=== PATIENT | male | born 1970 | race Caucasian/White ===

== ENCOUNTER → 2023-07-29 06:41 | Day surgery (SDC) | payer BC, SELFPAY | LOC: GI 06:41 | PROVIDERS: ATTENDING PHYSICIAN Internal Medicine Gastroenterology; FAMILY PHYSICIAN Internal Medicine | DX: Z12.11 Encounter for screening for malignant neoplasm of colon (principal); D12.2 Benign neoplasm of ascending colon; D12.3 Benign neoplasm of transverse colon; K57.30 Diverticulosis of large intestine without perforation or abscess without bleeding; K64.8 Other hemorrhoids | CPT/HCPCS: 45380; 88305 ==

== ENCOUNTER 2024-01-01 06:28 | Day surgery (SDC) | payer BC, SELFPAY ==
[2024-01-01 10:15] VITALS: BP 102/60
[2024-01-01 10:20] VITALS: BMI 25.5
[2024-01-01 11:10] VITALS: BP 109/72
[2024-01-01 11:30] VITALS: BP 98/45
[2024-01-01 11:34] VITALS: BP 99/62
== END 2024-01-01 11:38 | disposition home or self-care (01) ==
LOC: SDS 06:28
PROVIDERS: ATTENDING PHYSICIAN Internal Medicine Gastroenterology
DX: D12.3 Benign neoplasm of transverse colon (principal); D12.5 Benign neoplasm of sigmoid colon; K64.8 Other hemorrhoids
CPT/HCPCS: 45385; 88305

== ENCOUNTER → 2024-05-26 14:37 | Outpatient (REF) | payer BC, SELFPAY | LOC: RCS 14:37 | PROVIDERS: ATTENDING PHYSICIAN Internal Medicine Cardiovascular Disease; FAMILY PHYSICIAN Internal Medicine | DX: Z95.2 Presence of prosthetic heart valve (principal) | CPT/HCPCS: 93306 ==